=== PATIENT | male | born 1985 | race Caucasian/White ===

== ENCOUNTER 2025-07-28 11:56 | Outpatient (CLI) | payer BC, SELFPAY ==
--- OUTSIDE RECORDS SUMMARY | 2005-04-17 03:57 | XMS_ITS | Continuity of Care Document ---
Author Organization [facility] Address [address] [place] [address] Phone Care Team Providers Care Commercial Decorator Name Role Phone Gunnar Marroquin MD Unavailable Unavailable Allergies, Adverse Reactions, Alerts Substance Reaction Status Criticality penicillin V nausea Active No Information Advance Directives Directive Yes / No Effective Date File Name No Information Encounters Encounter Description Practice Location Reason(s) For Visit Diagnoses Date Provider Providers Copied on Encounter [facility], [address], [place], [place], [id number], tel:[phone] [facility] No Information Cara Maher. [address] [facility] [facility] [address], [place], [id number], [place]. tel:[phone] [facility], [address], [place], [place], [id number], [place] tel:[phone] [facility] EFFUSION OF UPPER ARM JOINT Rahel Castelan. [address] [place], [address], [place]. tel:[phone] Family History Family Member Type Diagnosis Age At Onset No Information Payers Payer name Insurance type Covered republican ID Authoriza tion(s) No Information Social History Type Description Quantity Date Captured Comments Sex Male Smoking Status No Information Chief Complaint And Reason For Visit No Information Reason For Referral Reason For Referral No Information History Of Present Illness Encounter Date Complaint History Of Prese nt Illness No Information Functional Status Date Functional Assessmen t No Information Instructions Date Instruction Additional Infor mation No Information Assessments Type Assessment Date No Information Patient Care Teams Name Effective Dates (start - stop) Status Members No Information
--- NOTE | 2025-07-28 12:00 | XR_ITS ---
FINAL REPORT CLINICAL HISTORY: Assess fecal burden COMPARISON: None FINDINGS: SINGLE VIEW ABDOMEN A single view of the abdomen was obtained. There is a nonobstructive bowel gas pattern. A moderate stool burden is present. There are no abnormally dilated loops of small bowel. No abnormal calcifications are identified. IMPRESSION: Nonobstructive bowel gas pattern with a moderate stool burden. Reviewed, Interpreted and Dictated by Ramon Jaramillo MD Transcribed by [employer] More Authenticated and [facility]
--- OUTSIDE RECORDS SUMMARY | 2025-07-28 12:01 | XMS_ITS | Clinical Summary ---
Author Organization [facility] Address [address] [place] [address] Care Team Providers Care Imaging Services Director Name Role Phone Israel Peacock MD Primary Care Provider + [phone] Allergies Active Allergy Reactions Criticality Noted Date Comments Penicillins Unknown - Low Severity 05/11/2023 Medications escitalopram (LEXAPRO) 10 MG tablet Take 1 tablet by mouth Daily. Active QUEtiapine (SEROquel) 25 MG tablet Take 1 tablet by mouth Every Night. Active ALPRAZolam (XANAX) 0.5 MG tablet Take by mouth See Admin Instructions. Take 1 tablet by mouth every 6-8 hours as needed 08/18/2024 Active Testosterone 1.62 % gel 11/26/2020 Active Cholecalciferol (vitamin D3) 125 MCG (5000 UT) tablet tabletIndicatio ns:Vitamin D deficiency Take 1 tablet by mouth Daily. 05/08/2025 Active omega-3 acid ethyl esters (Lovaza) 1 g capsuleIndicati ons:Hypertrigly ceridemia Take 2 capsules by mouth 2 (Two) Times a Day. 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 Weight is unchanged. BMI is above average; BMI management plan is completed. We discussed portion control and increasing exercise. Assessment & Plan (02/26/2025 12:00 PM EDT): Patient's (Body mass index is 31.42 kg/m .) indicates that they are obese (BMI >30) with health conditions that include impaired fasting glucose, dyslipidemias, and GERD . Weight is worsening. BMI is above average; BMI management plan is completed. We discussed portion control and increasing exercise. Impaired fasting glucose 02/26/2025 Assessment & Plan (05/08/2025 11:29 PM EDT): Increase fiber and try FODMAP diet Assessment & Plan (02/26/2025 12:00 PM EDT): Discussed decreasing bad carbohydrates, specifically sweets, breads, potatoes, corn and high caloric drinks (juices, sodas, sweet tea). Also recommend increasing physical activity, ideally 150 minutes aerobic exercise weekly and resistance exercises 2-3x/week. Mixed hyperlipidemia 02/26/2025 Assessment & Plan (05/08/2025 11:39 PM EDT): Increase fiber and limit processed foods. Assessment & Plan (02/26/2025 12:01 PM EDT): He will likely do cholesterol gummies with fiber, red yeast and some other things. Preventative health care 02/26/2025 Assessment & Plan (02/26/2025 12:03 PM EDT): His mood is pretty good but will like different drug management. His sleep needs improvement and will follow with Dr Schmid He will see Gi Dr Gonzales et al regarding numerous active GI issues. Proceed with labs Age-appropriate Counseling: Discussed preventative medicine issues with patient including regular exercise, healthy diet, stress reduction, adequate sleep and recommended age-appropriate screening studies. Immunizations reviewed. Sleep disturbance 02/26/2025 Assessment & Plan (05/08/2025 11:36 PM EDT): Follow with Dr Schmid. 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, not intractable 02/26/2025 Assessment & Plan (02/26/2025 12:05 PM EDT): He had episode TIA like and needs better sleep and if recurs see Neurology here Gastroesophageal reflux dise ase with esophagitis without hemorrhage 02/26/2025 Assessment & Plan (05/08/2025 11:31 PM EDT): Proceed with EGD with Dr Raines Assessment & Plan (02/26/2025 12:05 PM EDT): Intolerant of omeprazole and cosndier new class of medication Eosinophilic esophagitis 02/26/2025 Assessment & Plan (02/26/2025 12:12 PM EDT): Plan look for food allergens like dairy, egg, peanuts, tree nuts seafood, shell fish, soy and or wheat gluten. See GI. Fatty liver 02/26/2025 Assessment & Plan (05/08/2025 11:31 PM EDT): Increase fiber and reduce bad carbs and weight loss Assessment & Plan (02/26/2025 12:10 PM EDT): Mildly elevated liver test and encouraged to lose weight and reduce bad fats, processed foods and. bad carbohydrates, specifically sweets, breads, potatoes, corn and high caloric drinks (juices, sodas, sweet tea). Also recommend increasing physical activity, ideally 150 minutes aerobic exercise weekly and resistance exercises 2-3x/week. 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 Depression is in partial remission and stable. Plan: Continue current medication therapy Followup in 4 weeks and then likely change regime . Encounters Date Type Department Care Team Description 05/19/2025 Telephone [facility] [address] [facility] [address] [place] [address] Israel Peacock MD 05/11/2025 Telephone [facility] [address] [facility] [address] [place] [address] Israel Peacock MD 05/08/2025 2:45 PM EDT Office Visit [facility] [address] 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; Esophageal dysphagia; Gastroesophageal reflux disease with esophagitis without hemorrhage; Sleep disturbance; Hypertriglyceridemi a 05/08/2025 Travel 05/08/2025 Results Follow-Up [facility] [address] [facility] [address] [place] [address] Israel Peacock MD 05/05/2025 12:05 PM EDT [facility] [address] [place] [address] Mixed hyperlipidemia; Abdominal bloating; Prerenal azotemia; Impaired fasting glucose; Screening PSA (prostate specific antigen); High risk medication use; Encounter for hepatitis C screening test for low risk patient; Low testosterone; Eosinophilic esophagitis; Gastrointestinal food allergy 05/05/2025 Travel from Last 3 Months Family History Medical History Relation Name Comments Dementia Father lewy body 74 impair fasting glucose Father Heart disease Maternal Grandfather chf paternal uncle diabetes Other Heart disease Paternal Grandfather Diabetes Paternal Grandmother Relation Name Status Comments Father Maternal Grandfather Other Paternal Grandfather Paternal Grandmother Social History Tobacco Use Types Packs/Day Years Used Date Smoking Tobacco: Never Passive Smoke Exposure: Never Smokeless Tobacco: Never Tobacco Cessation:Counseling Given: Not Answered Alcohol Use Standard Drinks/Week Comments Yes 0 (1 standard drink = 0.6 oz pur e alcohol) PHQ-2 Answer Date Recorded Patient Health Questionnaire-2 Score 0 02/26/2025 Sex and Gender Information Value Date Recorded Sex Assigned at Male 02/25/2025 11:38 AM EDT Legal Sex Male 1:41 PM EDT Gender Identity Not on file Sexual Orientation Not on file Last Filed Vital Signs Vital Sign Reading Time Taken Comments Blood Pressure 108/78 05/08/2025 3:12 PM EDT Pulse 76 05/08/2025 3:12 PM EDT Temperature 36.3 C (97.3 F) 05/08/2025 3:12 PM EDT Respiratory Rate 16 05/11/2023 10:47 AM EDT Oxygen Saturation 95% 10/13/2024 2:36 PM EST Inhaled Oxygen Concentration - - Weight 121 kg (266 lb) 05/08/2025 3:12 PM EDT Height 195.6 cm (6' 5.01 ) 05/08/2025 3:12 PM ED T Body Mass Index 31.54 05/08/2025 3:12 PM EDT Plan of Treatment Upcoming Encounters Date Type Department Care Team (Late st Contact Info) Description 09/11/2025 11:30 AM EDT Office Visit [facility] [address] [address] Israel Peacock MD [address] [address] Health Maintenance Due Date Last Done Comments Pneumococcal Vaccine 0-49 (1 of 2 - PCV) 2002 TDAP/TD VACCINES (1 - Tdap) 2002 COVID-19 Vaccine (1 - 2023- season) 2024 INFLUENZA VACCINE 08/26/2025 ANNUAL PHYSICAL 02/26/2026 02/26/2025 LIPID PANEL 05/05/2026 05/05/2025, 06/11/2024 HEPATITIS C SCREENING Completed 05/05/2025 Procedures Procedure Name Priority Date/Time Associated Diagnosis Comments URINALYSIS AND MICROSCOPIC Routine 05/05/2025 11:45 AM EDT High risk medication use CBC AND DIFFERENTIAL Routine 05/05/2025 11:45 AM EDT Mixed hyperlipidemia FENTANYL, URINE Routine 05/05/2025 11:45 AM EDT High risk medication use URINALYSIS, MICROSCOPIC ONLY Routine 05/05/2025 11:45 AM EDT High risk medication use URINALYSIS WITHOUT MICROSCOPIC (NO CULTURE) Routine 05/05/2025 11:45 AM EDT High risk medication use CBC WITH AUTO DIFFERENTIAL Routine 05/05/2025 11:45 AM EDT Mixed hyperlipidemia FOOD ALLERGY PROFILE Routine 05/05/2025 11:45 AM EDT Eosinophilic esophagitis Gastrointestinal food allergy TESTOSTERONE Routine 05/05/2025 11:45 AM EDT Low testosterone URINE DRUG SCREEN Routine 05/05/2025 11: 45 AM EDT High risk medication use VITAMIN D,25-HYDROXY Routine 05/05/2025 11:45 AM EDT Prerenal azotemia HEPATITIS C ANTIBODY Routine 05/05/2025 11:45 AM EDT Encounter for hepatitis C screening test for low risk patient PSA SCREEN Routine 05/05/2025 11:45 AM EDT Screening PSA (prostate specific antigen) TSH RFX ON ABNORMAL TO FREE T4 Routine 05/05/2025 11:45 AM EDT Mixed hyperlipidemia MICROALBUMIN / CREATININE URINE RATIO Routine 05/05/2025 11:45 AM EDT Mixed hyperlipidemia LIPID PANEL Routine 05/05/2025 11:45 AM EDT Mixed hyperlipidemia HEMOGLOBIN A1C Routine 05/05/2025 11:45 AM EDT Impaired fasting glucose COMPREHENSIVE METABOLIC PANEL Routine 05/05/2025 11:45 AM EDT Mixed hyperlipidemia PHOSPHORUS Routine 05/05/2025 11:45 AM EDT Prerenal azotemia HOMOCYSTEINE Routine 05/05/2025 11:45 AM EDT Mixed hyperlipidemia CELIAC COMPREHENSIVE PANEL Routine 05/05/2025 11:45 AM EDT Abdominal bloating from Last 3 Months Results * PSA Screen (05/05/2025 11:45 AM EDT) PSA 0.408 0.000 - 4.000 ng/mL 05/05/2025 7:42 PM EDT [facility] Blood Venipuncture / Unknown 05/05/2025 11:45 AM EDT 05/05/2025 11:47 AM EDT Narrative [facility] - 05/05/2025 7:42 PM EDT Testing Method: [employer] Electrochemiluminescence Immunoassay(ECLIA) Values obtained with different assay methods or kits cannot be used interchangeably. us Israel Peacock MD LAB BLOOD ORDERABLES Final R esult [facility]
[address] [place] [address], [place] [phone] * TSH Rfx On Abnormal To Free T4 (05/05/2025 11:45 AM EDT) TSH 2.440 0.270 - 4.200 uIU/mL 05/05/2025 7:42 PM EDT [facility] Blood Venipuncture / Unknown 05/05/2025 11:45 AM EDT 05/05/2025 11:47 AM EDT Israel Peacock MD LAB BLOOD ORDERABLES Final R esult [facility]
[address] [place] [address], * Urinalysis, Microscopic Only - Urine, Clean Catch (05/05/2025 11:45 AM EDT) RBC, UA 0-2 None Seen, 0-2 /HPF 05/05/2025 6:58 PM EDT [facility] WBC, UA 0-2 None Seen, 0-2 /HPF 05/05/2025 6:58 PM EDT [facility] Bacteria, UA None Seen None Seen /HPF 05/05/2025 6:58 PM EDT [facility] Squamous Epithelial Cells, UA None Seen None Seen, 0-2 /HPF 05/05/2025 6:58 PM EDT [facility] Hyaline Casts, UA None Seen None Seen /LPF 05/05/2025 6:58 PM EDT [facility] Methodology Automated Microscopy 05/05/2025 6:58 PM EDT [facility] Urine Urine specimen obtained by clean catch procedure / Unknown Collection / Unknown 05/05/2025 11:45 AM EDT 05/05/2025 11:47 AM EDT Israel Peacock MD URINE ORDERABLES Final Resul t [facility]
[address] [place] [address], * (ABNORMAL) Food Allergy Profile (05/05/2025 11:45 AM EDT) Class Description Comment 05/08/2025 9:10 AM EDT [facility] Comment: Levels of Specific IgE Class Description of Class ----- < 0.10 0 Negative 0.10 - 0.31 0/I Equivocal/Low 0.32 - 0.55 I Low 0.56 - 1.40 II Moderate 1.41 - 3.90 III High 3.91 - 19.00 IV Very High 19.01 - 100.00 V Very High >100.00 Very High Egg White <0.10 Class 0 kU/L 05/08/2025 9:10 AM EDT [facility] Peanut <0.10 Class 0 kU/L 05/08/2025 9:10 AM EDT [facility] Soybean <0.10 Class 0 kU/L 05/08/2025 9:10 AM EDT [facility] Milk, Cow's 0.28(A) Class 0/I kU/L 05/08/2025 9:10 AM EDT [facility] Clams <0.10 Class 0 kU/L 05/08/2025 9:10 AM EDT [facility] Shrimp <0.10 Class 0 kU/L 05/08/2025 9:10 AM EDT [facility] Lyndon <0.10 Class 0 kU/L 05/08/2025 9:10 AM EDT [facility] CodFish <0.10 Class 0 kU/L 05/08/2025 9:10 AM EDT [facility] Scallop <0.10 Class 0 kU/L 05/08/2025 9:10 AM EDT [facility] Wheat <0.10 Class 0 kU/L 05/08/2025 9:10 AM EDT [facility] [place] <0.10 Class 0 kU/L 05/08/2025 9:10 AM EDT [facility] Sesame Seed <0.10 Class 0 kU/L 05/08/2025 9:10 AM EDT [facility] Blood Venipuncture / Unknown 05/05/2025 11:45 AM EDT 05/05/2025 11:47 AM EDT Narrative [facility] - 05/08/2025 9:10 AM EDT Performed at: [address] [place] [id number] Business Job Titles: Lalo Mcpherson MD, Phone: [phone] us Israel Peacock MD LAB BLOOD ORDERABLES Final R esult [facility] [address] [place] [address], * CBC Auto Differential (05/05/2025 11:45 AM EDT) WBC 5.55 3.40 - 10.80 10*3/mm3 05/05/2025 6:27 PM EDT [facility] RBC 5.78 4.14 - 5.80 10*6/mm3 05/05/2025 6:27 PM EDT [facility] Hemoglobin 17.3 13.0 - 17.7 g/dL 05/05/2025 6:27 PM EDT [facility] Hematocrit 50.2 37.5 - 51.0 % 05/05/2025 6:27 PM EDT [facility] MCV 86.9 79.0 - 97.0 fL 05/05/2025 6:27 PM EDT [facility] MCH 29.9 26.6 - 33.0 pg 05/05/2025 6:27 PM EDT [facility] MCHC 34.5 31.5 - 35.7 g/dL 05/05/2025 6:27 PM EDT [facility] RDW 13.7 12.3 - 15.4 % 05/05/2025 6:27 PM EDT [facility] RDW-SD 43.3 37.0 - 54.0 fl 05/05/2025 6:27 PM [facility] MPV 9.9 6.0 - 12.0 fL 05/05/2025 6:27 PM [facility] Platelets 199 140 - 450 10*3/mm3 05/05/2025 6:27 PM [facility] Neutrophil % 56.2 42.7 - 76.0 % 05/05/2025 6:27 PM [facility] Lymphocyte % 33.9 19.6 - 45.3 % 05/05/2025 6:27 PM [facility] Monocyte % 7.2 5.0 - 12.0 % 05/05/2025 6:27 PM [facility] Eosinophil % 1.6 0.3 - 6.2 % 05/05/2025 6:27 PM [facility] Basophil % 0.7 0.0 - 1.5 % 05/05/2025 6:27 PM [facility] Immature Grans % 0.4 0.0 - 0.5 % 05/05/2025 6:27 PM [facility] Neutrophils, Absolute 3.12 1.70 - 7.00 10*3/mm3 05/05/2025 6:27 PM [facility] Lymphocytes, Absolute 1.88 0.70 - 3.10 10*3/mm3 05/05/2025 6:27 PM [facility] Monocytes, Absolute 0.40 0.10 - 0.90 10*3/mm3 05/05/2025 6:27 PM [facility] Eosinophils, Absolute 0.09 0.00 - 0.40 10*3/mm3 05/05/2025 6:27 PM [facility] Basophils, Absolute 0.04 0.00 - 0.20 10*3/mm3 05/05/2025 6:27 PM [facility] Immature Grans, Absolute 0.02 0.00 - 0.05 10*3/mm3 05/05/2025 6:27 PM EDT [facility] nRBC 0.0 0.0 - 0.2 /100 WBC 05/05/2025 6:27 PM EDT [facility] Blood Venipuncture / Unknown 05/05/2025 11:45 AM EDT 05/05/2025 11:47 AM EDT Israel Peacock MD LAB BLOOD ORDERABLES Final R esult Performing Organization Address City/[facility]/ZIP Co de Phone Number [facility]
[address] [place] [address], * Hepatitis C Antibody (05/05/2025 11:45 AM EDT) Pathologist [facility] Hepatitis C Ab Non-Reacti ve Non-Reacti ve 05/05/2025 6:59 PM EDT [facility] Blood Venipuncture / Unknown 05/05/2025 11:45 AM EDT 05/05/2025 11:47 AM EDT Israel Peacock MD LAB BLOOD ORDERABLES Final R esult Performing Organization Address [facility] de Phone Number [facility]
[address] [place] [address], [place] [phone] * Celiac Comprehensive Panel (05/05/2025 11:45 AM EDT) Pathologist [facility] Gliadin Deamidated Peptide Ab, IgA 4 0 - 19 units 05/06/2025 3:10 PM EDT [facility] Comment: Negative 0 - 19 Weak Positive 20 - 30 Moderate to Strong Positive >30 Deaminated Gliadin Ab IgG 2 0 - 19 units 05/06/2025 3:10 PM EDT [facility] Comment: Negative 0 - 19 Weak Positive 20 - 30 Moderate to Strong Positive >30 Tissue Transglutaminase IgA <2 0 - 3 U/mL 05/06/2025 3:10 PM EDT [facility] Comment: Negative 0 - 3 Weak Positive 4 - 10 Positive >10 Tissue Transglutaminase (tTG) has been identified as the endomysial antigen. Studies have demonstr- ated that endomysial IgA antibodies have over 99% specificity for gluten sensitive enteropathy. Tissue Transglutaminase IgG <2 0 - 5 U/mL 05/06/2025 3:10 PM EDT [facility] Comment: Negative 0 - 5 Weak Positive 6 - 9 Positive >9 Endomysial IgA Negative Negative 05/06/2025 3:10 PM EDT [facility] IgA 157 90 - 386 mg/dL 05/06/2025 3:10 PM EDT [facility] Blood Venipuncture / Unknown 05/05/2025 11:45 AM EDT 05/05/2025 11:47 AM EDT Narrative [facility] - 05/06/2025 3:10 PM EDT Performed at: [address] [place] [id number] Business Job Titles: Jonnie Leal PhD, Phone: [phone] us Israel Peacock MD LAB BLOOD ORDERABLES Final R esult Performing Organization Address City/[facility] de Phone Number [address] [address], * Microalbumin / Creatinine Urine Ratio - Urine, Clean Catch (05/05/2025 11:45 AM EDT) Microalbumin/C reatinine Ratio 8.2 0.0 - 29.0 mg/g 05/05/2025 7:22 PM EDT [facility] Creatinine, Urine 171.7 mg/dL 05/05/2025 7:22 PM EDT [facility] Microalbumin, Urine 1.4 mg/dL 05/05/2025 7:22 PM EDT [facility] Urine Urine specimen obtained by clean catch procedure / Unknown Collection / Unknown 05/05/2025 11:45 AM EDT 05/05/2025 11:47 AM EDT us Israel Peacock MD URINE ORDERABLES Final Resul t [facility]
[address] [place] [address], * Urine Drug Screen - Urine, Clean Catch (05/05/2025 11:45 AM EDT) [facility] THC, Screen, Urine Negative Negative 2024 4:28 PM EDT LABORATORY Phencyclidine (PCP), Urine Negative Negative 05/05/2025 4:28 PM EDT LABORATORY Cocaine Screen, Urine Negative Negative 05/05/2025 4:28 PM EDT LABORATORY Methamphetamine, Ur Negative Negative 05/05 4:28 PM EDT LABORATORY Opiate Screen Negative Negative 05/05/2025 4:28 PM EDT LABORATORY Amphetamine Screen, Urine Negative Negative 05/05/2025 4:28 PM EDT LABORATORY Benzodiazepine Screen, Urine Negative Negative 05/05/2025 4:28 PM EDT LABORATORY Tricyclic Antidepressants Screen Negative Negative 05/05/2025 4:28 PM EDT LABORATORY Methadone Screen, Urine Negative Negative 05/05/2025 4:28 PM EDT LABORATORY Barbiturates Screen, Urine Negative Negative 05/05/2025 4:28 PM EDT LABORATORY Oxycodone Screen, Urine Negative Negative 05/05/2025 4:28 PM EDT LABORATORY Buprenorphine, Screen, Urine Negative Negative 05/05/2025 4:28 PM EDT LABORATORY Urine Urine specimen obtained by clean catch procedure / Unknown Collection / Unknown 05/05/2025 11:45 AM EDT 05/05/2025 11:47 AM EDT [facility] - 05/05/2025 4:28 PM EDT Cutoff For Drugs Screened: Amphetamines 500 ng/ml Barbiturates 200 ng/ml Benzodiazepines 150 ng/ml Cocaine 150 ng/ml Methadone 200 ng/ml Opiates 100 ng/ml Phencyclidine 25 ng/ml THC 50 ng/ml Methamphetamine 500 ng/ml Tricyclic Antidepressants 300 ng/ml Oxycodone 100 ng/ml Buprenorphine 10 ng/ml The normal value for all drugs tested is negative. This report includes unconfirmed screening results, with the cutoff values listed, to be used for medical treatment purposes only. Unconfirmed results must not be used for non-medical purposes such as employment or legal testing. Clinical consideration should be applied to any drug of abuse test, particularly when unconfirmed results are used. us Israel Peacock MD URINE ORDERABLES Final Resul t Performing Organization Address City/[facility]/ZIP Co de Phone Number LABORATORY
[address] [place] [address], * Fentanyl, Urine - Urine, Clean Catch (05/05/2025 11:45 AM EDT) Fentanyl, Urine Negative Negative 05/05/2025 4:58 PM EDT LABORATORY Urine Urine specimen obtained by clean catch procedure / Unknown Collection / Unknown 05/05/2025 11:45 AM EDT 05/05/2025 11:47 AM EDT [facility] - 05/05/2025 4:58 PM EDT Negative Threshold: Fentanyl 5 ng/mL The normal value for the drug tested is negative. This report includes final unconfirmed screening results to be used for medical treatment purposes only. Unconfirmed results must not be used for non-medical purposes such as employment or legal testing. Clinical consideration should be applied to any drug of abuse test, particularly when unconfirmed results are used. us Israel Peacock MD URINE ORDERABLES Final Resul t Performing Organization Address [facility] Co de Phone Number LABORATORY
[address] [place] [address], * (ABNORMAL) Vitamin D,25-Hydroxy (05/05/2025 11:45 AM EDT) 25 Hydroxy, Vitamin D 27.7(L) 30.0 - 100.0 ng/ml 05/05/2025 6:59 PM EDT [facility] Blood Venipuncture / Unknown 05/05/2025 11:45 AM EDT 05/05/2025 11:47 AM EDT Narrative [facility] - 05/05/2025 6:59 PM EDT Reference Range for Total Vitamin D 25(OH) Deficiency <20.0 ng/mL Insufficiency 21-29 ng/mL Sufficiency 30-100 ng/mL Toxicity >100 ng/ml us Israel Peacock MD LAB BLOOD ORDERABLES Final R esult [facility]
[address] [place] [address], * Urinalysis without microscopic (no culture) - Urine, Clean Catch (05/05/2025 11:45 AM EDT) Color, UA Yellow Yellow, Straw 05/05/2025 6:44 PM EDT [facility] Appearance, UA Clear Clear 05/05/2025 6:44 PM EDT [facility] pH, UA 6.5 5.0 - 8.0 05/05/2025 6:44 PM EDT [facility] Specific [place], UA 1.023 1.005 - 1.030 05/05/2025 6:44 PM EDT [facility] Glucose, UA Negative Negative 05/05/2025 6:44 PM EDT [facility] Ketones, UA Negative Negative 05/05/2025 6:44 PM EDT [facility] Bilirubin, UA Negative Negative 05/05/2025 6:44 PM EDT [facility] Blood, UA Negative Negative 05/05/2025 6:44 PM EDT [facility] Protein, UA Negative Negative 05/05/2025 6:44 PM EDT [facility] Leuk Esterase, UA Negative Negative 05/05/2025 6:44 PM EDT [facility] Nitrite, UA Negative Negative 05/05/2025 6:44 PM EDT [facility] Urobilinogen, UA 0.2 E.U./dL 0.2 - 1.0 E.U./dL 05/05/2025 6:44 PM EDT [facility] Urine Urine specimen obtained by clean catch procedure / Unknown Collection / Unknown 05/05/2025 11:45 AM EDT 05/05/2025 11:47 AM EDT us Israel Peacock MD URINE ORDERABLES Final Resul t Performing Organization Address [facility] [facility] [place] Co de Phone Number [facility]
[address] [place] [address], * Testosterone (05/05/2025 11:45 AM EDT) Testosterone, Total 657.00 249.00 - 836.00 ng/dL 05/05/2025 7:42 PM EDT [facility] Blood Venipuncture / Unknown 05/05/2025 11:45 AM EDT 05/05/2025 11:47 AM EDT us Israel Peacock MD LAB BLOOD ORDERABLES Final R esult Performing Organization Address [facility] Co de Phone Number [facility]
[address] [place] [address], * Phosphorus (05/05/2025 11:45 AM EDT) Phosphorus 3.1 2.5 - 4.5 mg/dL 05/05/2025 7:42 PM EDT [facility] Blood Venipuncture / Unknown 05/05/2025 11:45 AM EDT 05/05/2025 11:47 AM EDT us Israel Peacock MD LAB BLOOD ORDERABLES Final R esult Performing Organization Address City/[facility]/ZIP Co de Phone Number [facility]
[address] [place] [address], * Homocysteine (05/05/2025 11:45 AM EDT) [facility] Homocysteine, Plasma (Quant) 13.6 0.0 - 15.0 umol/L 05/05/2025 7:42 PM EDT [facility] Blood Venipuncture / Unknown 05/05/2025 11:45 AM EDT 05/05/2025 11:47 AM EDT Israel Peacock MD LAB BLOOD ORDERABLES Final R esult [facility]
[address] [place] [address], * (ABNORMAL) Hemoglobin A1c (05/05/2025 11:45 AM EDT) [facility] Hemoglobin A1C 6.00(H) 4.80 - 5.60 % 05/05/2025 6:28 PM EDT [facility] Blood Venipuncture / Unknown 05/05/2025 11:45 AM EDT 05/05/2025 11:47 AM EDT Narrative [facility] - 05/05/2025 6:28 PM EDT Hemoglobin A1C Ranges: Increased Risk for Diabetes 5.7% to 6.4% Diabetes >= 6.5% Diabetic Goal < 7.0% Israel Peacock MD LAB BLOOD ORDERABLES Final R esult [facility]
[address] [place] [address], * (ABNORMAL) Lipid Panel (05/05/2025 11:45 AM EDT) [facility] Total Cholesterol 280(H) 0 - 200 mg/dL 05/05/2025 7:42 PM EDT [facility] Triglycerides 437(H) 0 - 150 mg/dL 05/05/2025 7:42 PM EDT [facility] HDL Cholesterol 31(L) 40 - 60 mg/dL 05/05/2025 7:42 PM EDT [facility] LDL Cholesterol 164(H) 0 - 100 mg/dL 05/05/2025 7:42 PM EDT [facility] VLDL Cholesterol 85(H) 5 - 40 mg/dL 05/05/2025 7:42 PM EDT [facility] LDL/HDL Ratio 5.21 05/05/2025 7:42 PM EDT [facility] Blood Venipuncture / Unknown 05/05/2025 11:45 AM EDT 05/05/2025 11:47 AM EDT Narrative [facility] - 05/05/2025 7:42 PM EDT Cholesterol Reference Ranges (U.S. Department of Health and Human Services ATP III Classifications) Desirable <200 mg/dL Borderline High 200-239 mg/dL High Risk >240 mg/dL Triglyceride Reference Ranges (U.S. Department of Health and Human Services ATP III Classifications) Normal <150 mg/dL Borderline High 150-199 mg/dL High 200-499 mg/dL Very High >500 mg/dL HDL Reference Ranges (U.S. Department of Health and Human Services ATP III Classifications) Low <40 mg/dl (major risk factor for CHD) High >60 mg/dl ('negative' risk factor for CHD) LDL Reference Ranges (U.S. Department of Health and Human Services ATP III Classifications) Optimal <100 mg/dL Near Optimal 100-129 mg/dL Borderline High 130-159 mg/dL High 160-189 mg/dL Very High >189 mg/dL LDL is calculated using the NIH LDL-C calculation. us Israel Peacock MD LAB BLOOD ORDERABLES Final R esult [facility]
[address] [place] [address], * (ABNORMAL) Comprehensive Metabolic Panel (05/05/2025 11:45 AM EDT) [facility] Glucose 114(H) 65 - 99 mg/dL 05/05/2025 7:42 PM [facility] BUN 12.0 6.0 - 20.0 mg/dL 05/05/2025 7:42 PM [facility] Creatinine 1.19 0.76 - 1.27 mg/dL 05/05/2025 7:42 PM [facility] Sodium 138 136 - 145 mmol/L 05/05/2025 7:42 PM [facility] Potassium 4.2 3.5 - 5.2 mmol/L 05/05/2025 7:42 PM [facility] Chloride 105 98 - 107 mmol/L 05/05/2025 7:42 PM [facility] CO2 21.6(L) 22.0 - 29.0 mmol/L 05/05/2025 7:42 PM [facility] Calcium 9.9 8.6 - 10.5 mg/dL 05/05/2025 7:42 PM [facility] Total Protein 7.9 6.0 - 8.5 g/dL 05/05/2025 7:42 PM [facility] Albumin 4.5 3.5 - 5.2 g/dL 05/05/2025 7:42 PM [facility] ALT (SGPT) 65(H) 1 - 41 U/L 05/05/2025 7:42 PM [facility] AST (SGOT) 32 1 - 40 U/L 05/05/2025 7:42 PM [facility] Alkaline Phosphatase 130(H) 39 - 117 U/L 05/05/2025 7:42 PM [facility] Total Bilirubin 0.5 0.0 - 1.2 mg/dL 05/05/2025 7:42 PM [facility] Globulin 3.4 gm/dL 05/05/2025 7:42 PM [facility] A/G Ratio 1.3 g/dL 05/05/2025 7:42 PM EDT [facility] BUN/Creatinine Ratio 10.1 7.0 - 25.0 05/05/2025 7:42 PM EDT [facility] Anion Gap 11.4 5.0 - 15.0 mmol/L 05/05/2025 7:42 PM EDT [facility] eGFR 78.7 >60.0 mL/min/1.7 3 05/05/2025 7:42 PM EDT [facility] Blood Venipuncture / Unknown 05/05/2025 11:45 AM EDT 05/05/2025 11:47 AM EDT [facility] - 05/05/2025 7:42 PM EDT GFR Categories in Chronic Kidney Disease (CKD) GFR Category GFR (mL/min/1.73) Interpretation G1 90 or greater Normal or high (1) G2 60-89 Mild decrease (1) G3a 45-59 Mild to moderate decrease G3b 30-44 Moderate to severe decrease G4 15-29 Severe decrease G5 14 or less Kidney failure (1)In the absence of evidence of kidney disease, neither GFR category G1 or G2 fulfill the criteria for CKD. eGFR calculation 2020 CKD-EPI creatinine equation, which does not include race as a factor Israel Peacock MD LAB BLOOD ORDERABLES Final R esult [facility]
[address] [place] [address], from Last [address] PPO Care Teams Imaging Services Director Relationship Specialty Start Date End Date Israel Peacock MD [address] [facility] [address] [place] [address] PCP - General Internal Medicine 02/26/25
[2025-07-31 05:09] LABS: ALT (SGPT) P5P 96 IU/L (0-55); AST (SGOT) P5P 50 IU/L (0-40); Alpha 2-Macroglobulins, Qn 163 mg/dL (110-276); Bilirubin, Total <0.2 mg/dL (0.0-1.2); Cholesterol, Total 288 mg/dL (100-199); GGT 118 IU/L (0-65); Glucose 105 mg/dL (70-99); Triglycerides 384 mg/dL (0-149)
== END 2025-07-28 23:59 | disposition home or self-care (01) ==
LOC: LAB 11:58
PROVIDERS: PCP Internal Medicine; Visit Provider Internal Medicine Gastroenterology
DX: K76.0 Fatty (change of) liver, not elsewhere classified (principal)
CPT/HCPCS: 36415; 74018; 81596; 82172; 82247; 82465; 82947; 82977; 83521; 84450; 84460; 84478